=== PATIENT | female | born 1950 | race Caucasian/White ===

== ENCOUNTER 2016-07-01 08:32 | Emergency (ER) | payer MEDICAID ==
[2016-07-01] MEDS ORDERED: ONDANSETRON 4 MG VIAL ONE ×2 (09:13→10:22)
== END 2016-07-01 13:24 | disposition home or self-care (01) ==
LOC: ER 08:32
DX: K92.2 Gastrointestinal hemorrhage, unspecified (principal); Z79.899 Other long term (current) drug therapy
CPT/HCPCS: 36415; 74176; 80053; 81001; 82140; 82274; 82553; 83690; 84484; 85025; 85610; 85730; 87088; 93005; 96374; 96376